=== PATIENT | female | born 1925 | race Caucasian/White ===

== ENCOUNTER → 2016-04-06 | Outpatient (CLI) | payer MEDICARE, BC ==
[~2016-04-06] MED LIST: ACET-915 PO; ALLO100T PO; AMLO5TAB4 PO; ASPI-535 PO; FENO145T25 PO; FOLI-49 PO; LEVO100T96 PO; MAXZ25 PO; METO25TA54 PO; OMEG-135 PO
--- NOTE | 2016-04-06 14:42 | RADRPT ---
PROCEDURE: XR Left Hip and pelvis. CLINICAL INDICATION: Left hip pain. Pelvic pain. TECHNIQUE: Two views. Frontal pelvis and lateral left hip. COMPARISON: 04/06/2015. FINDINGS: There is no fracture or dislocation. The soft tissues are normal. There are moderate degenerative changes of the right hip with joint space narrowing and osteophytes. There are mild degenerative changes of the left hip with osteophytes. There is no lytic or blastic lesion. The upper pelvis is not included on the images. IMPRESSION: 1. Moderate degenerative changes of the right hip. 2. Mild degenerative changes of the left hip. RPTAT: QQ .Imtiaz Garcia MD, MD Date Time Electronically viewed and signed by .Imtiaz Garcia MD, on 04/06/2016 14:42 .R/
--- NOTE | 2016-04-06 22:12 | HKNOTE ---
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 She complains of pain in her left buttocks with radiation down the leg to the foot. She has no numbness or tingling in her legs. She has not had any history of problems with her lower back before. PHYSICAL EXAMINATION: VITAL SIGNS: Blood pressure 195/85, temperature 97.7. BACK: Dynamic pain assessment reveals pain is reproduced by extension and lateral flexion to the ri ght. Pain free range of motion in flexion, and rotation. Inspection of the spine reveals no list. There is no lumbar paraspinal muscle spasm. The pelvis is level. Facet stress test is negative bi laterally. Palpation of the spine demonstrates no tenderness of the spinous processes, facet joints , sacroiliac joint, sciatic notch, or posterior thigh. NEUROLOGIC: Motor examination reveals no muscle deficit in the lower extremities. Deep tendon refl exes in the lower extremities: Right knee jerk plus, left knee jerk plus, right ankle jerk plus, le ft ankle jerk plus. Straight leg raising is negative bilaterally at 80 degrees. Lasegue and JEFFREY tests are negative. DIAGNOSIS: Left-sided sciatica. MANAGEMENT: The patient was given a prescription for Flexeril, [place], Naprosyn, and she is being se nt for an MRI scan of the lumbar spine. She will be seen again thereafter for reevaluation. Dictated By: CONCHA DUKE/GLADIS Conf#: [id number] DID#: [id number]
== END | disposition home or self-care (01) ==
LOC: HKI 13:31
DX: M54.32 Sciatica, left side (principal)
CPT/HCPCS: 73502; G0463

== ENCOUNTER → 2016-04-26 | Outpatient (CLI) | payer MEDICARE, BC ==
[~2016-04-26] MED LIST changes: -LEVO100T96 PO; +SYN1 PO
--- NOTE | 2016-04-27 07:34 | HKNOTE ---
DATE OF SERVICE: 04/26/2016 HISTORY OF PRESENT ILLNESS: Patient comes in with her lumbar MRI scan for review. She continues to have left-sided sciatica all the way from her back to her foot. She has no numbness or tingling in the legs. The pain comes and goes. Dr. Sauer gave her a Medrol Dosepak which helped her a grea t deal. However, she does not have any pain medications. PHYSICAL EXAMINATION: VITAL SIGNS: Blood pressure 145/65, temperature 97.5, pulse 55 per minute, respirations 12 per francesca te. RIGHT HIP: A full range of motion without pain. NEUROLOGIC: Motor examination reveals no muscle deficit in the lower extremities. Deep tendon refle xes in the lower extremities: Right knee jerk +, left knee jerk +, right ankle jerk +, left ankle j erk +. Straight leg raising is negative bilaterally at 80 degrees. Lasegue and JEFFREY tests are negat lorena. EXTREMITIES: Muscle strength is normal in both legs. 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 An MRI scan of her lumbar spine obtained on 04/08/[address] Nicolette New as showing among other pathologies "at L4-L5 there is degenerative anterolisthesis with diffuse disk bulge ext ending beyond the L5 vertebral body into the ventral canal, which, with facet hypertrophy, moderatel y to severely narrows the canal, particularly the lateral recess. In addition to disk bulge, anay listhesis mildly narrows the neural foramen." See the MRI report for the remainder of the pathology, of which there is some at every level as expe cted in a female of her age. DISCUSSION: The "severe narrowing of the canal" at the L4-5 level is of some concern. However, villa liu is an 89-year-old female and it is highly unlikely that she is going to consider undergoing surger y to her spine. She declined to be referred to a web content specialist. Patient will be referred for pain management. Dr. Karel Sauer was contacted by phone and he recommended Dr. Branden Lombardi for pain management. Patient will be seen again in 6 weeks' time for reevaluation. Dictated By: CONCAH DUKE/GLADIS Conf#: [id number] [facility]#: [id number]
== END | disposition home or self-care (01) ==
LOC: HKI 13:37
DX: M54.32 Sciatica, left side (principal); M16.11 Unilateral primary osteoarthritis, right hip
CPT/HCPCS: G0463